=== PATIENT | female | born 1960 | race Two or more races ===

== ENCOUNTER 2019-08-01 10:54 | Emergency (ER) | payer OTHER ==
[~2019-08-01] VITALS: Ht 147.3 cm; Wt 72.6 kg
--- NOTE | 2019-08-01 11:40 | Emergency Room Report ---
History of Present Illness General Chief Complaint: Edema Source: Patient Present Illness HPI Patient is a 58-year-old female past medical history of diabetes, hypertension and hyperlipidemia who presents to the ER complaining of lower extremity swelling. Patient complains of swelling for the past 3 months. She states it is worse during the day and relieved when she sleeps at night. She denies any chest pain or shortness of breath. She denies any fever or chills. She denies any trauma. She states that she was seen by her primary care physician had an ultrasound done and was told that everything was fine. Patient denies any abdominal pain, nausea or vomiting. Patient does not complain of any worsening of symptoms but wanted to see if there was a reason for her swelling. She states that she was given no medications for this by her primary care physician. Allergies: Coded Allergies: No Known Allergies (Unverified , 08/01/19) Patient History Reviewed Nursing Documentation: PMH: Agreed; PSxH: Agreed Nursing Documentation-PMH Past Medical History: No History, Except For Hx Diabetes: Yes Review of Systems All Other Systems: negative except mentioned in HPI Physical Exam Vital Signs Date Time Temp Pulse Resp B/P (MAP) Pulse Ox O2 Delivery O2 Flow Rate FiO2 08/01/19 10:59 98.4 96 16 159/83 (108) 95 Room Air Sp02 EP Interpretation: reviewed General Appearance: well appearing, no apparent distress, alert, GCS 15, non- toxic Head: normocephalic, atraumatic Eyes: bilateral eye normal inspection, bilateral eye PERRL ENT: hearing grossly normal, normal pharynx, no angioedema, normal voice Neck: full range of motion, supple/symm/no masses Respiratory: chest non-tender, no respiratory distress, speaking full sentences , other - faint bibasilar crackles Cardiovascular #1: regular rate, rhythm, edema - bl LE edema, Left greater than right, no erythema or crepitus Gastrointestinal: normal bowel sounds, non tender, soft, non-distended, no guarding, no rebound Genitourinary: normal inspection, no CVA tenderness Musculoskeletal: back normal, normal range of motion, calf tenderness, gait/ station normal, non-tender Neurologic: alert, motor strength/tone normal, oriented x3, sensory intact, responsive, speech normal Skin: no rash, normal color Lymphatic: normal inspection, no adenopathy Medical Decision Making Diagnostic Impression: Primary Impression: CHF (congestive heart failure) Additional Impressions: Leukocytosis Anemia ER Course Patient has mild leukocytosis of unknown significance. Patient has no fever or chills. Patient has no infiltrate on her chest x-ray. She denies any urinary symptoms but I have ordered for urinalysis which is pending at the time of admission. Laboratory Tests Test 08/01/19 11:50 White Blood Count 14.5 K/UL (4.8-10.8) H Red Blood Count 3.43 M/UL (4.20-5.40) L Hemoglobin 10.6 G/DL (12.0-16.0) L Hematocrit 30.7 % (37.0-47.0) L Mean Corpuscular Volume 89 FL (80-99) Mean Corpuscular Hemoglobin 30.8 PG (27.0-31.0) Mean Corpuscular Hemoglobin Concent 34.4 G/DL (32.0-36.0) Red Cell Distribution Width 11.3 % (11.6-14.8) L Platelet Count 240 K/UL (150-450) Mean Platelet Volume 6.0 FL (6.5-10.1) L Neutrophils (%) (Auto) 78.8 % (45.0-75.0) H Lymphocytes (%) (Auto) 11.5 % (20.0-45.0) L Monocytes (%) (Auto) 6.1 % (1.0-10.0) Eosinophils (%) (Auto) 2.6 % (0.0-3.0) Basophils (%) (Auto) 1.0 % (0.0-2.0) Sodium Level 135 MMOL/L (136-145) L Potassium Level 5.0 MMOL/L (3.5-5.1) Chloride Level 106 MMOL/L (98-107) Carbon Dioxide Level 26 MMOL/L (21-32) Anion Gap 3 mmol/L (5-15) L Blood Urea Nitrogen 27 mg/dL (7-18) H Creatinine 1.0 MG/DL (0.55-1.30) Estimate Glomerular Filtration Rate 56.8 mL/min (>60) Glucose Level 287 MG/DL (74-106) H Calcium Level 8.3 MG/DL (8.5-10.1) L Total Bilirubin 0.3 MG/DL (0.2-1.0) Aspartate Amino Transferase (AST) 19 U/L (15-37) Alanine Aminotransferase (ALT) 26 U/L (12-78) Alkaline Phosphatase 160 U/L (46-116) H Troponin I 0.011 ng/mL (0.000-0.056) Pro-B-Type Natriuretic Peptide 873 pg/mL (0-125) H Total Protein 5.7 G/DL (6.4-8.2) L Albumin 1.6 G/DL (3.4-5.0) L Globulin 4.1 g/dL Albumin/Globulin Ratio 0.4 (1.0-2.7) L EKG Diagnostic Results EKG Time: 12:07 Rate: normal Rhythm: NSR ST Segments: no acute changes Rhythm Strip Diag. Results Rhythm Strip Time: 12:27 EP Interpretation: other - Ktaie Fry MD Rate: 98 Rhythm: NSR, no PVC's, no ectopy Reevaluation Time: 13:27 - Patient resting comfortably in bed speaking on her phone. She is not hypoxic, tachycardic or hypotensive. She denies any chest pain or shortness of breath. BNP is almost 1000. Pending chest x-ray. Ultrasound demonstrates no evidence for DVT. I have ordered for 20 mg of IV Lasix as well as 162 mg of oral aspirin. Last Vital Signs Date Time Temp Pulse Resp B/P (MAP) Pulse Ox O2 Delivery O2 Flow Rate FiO2 08/01/19 10:59 98.4 96 16 159/83 (108) 95 Room Air Disposition: ADMITTED INPATIENT Condition: Improved Signed Out To: Dr. Carol Macias pending insurance approval and final disposition Katie Fry M.D. Aug 01, 2019 11:40
[2019-08-01 11:50] VITALS: BP 152/80
--- NOTE | 2019-08-01 12:10 | NUR ---
ED Nurse Note: Pt walked into ED w/ c/o swelling in bilateral legs. Pt legs have non-pitting edema. Bilateral pedal pusles 3+. Pt has pain 7/10 in bilater legs, ROM 4/5. Pt is alert and orientedx4, ambulatory with assist. is at bedside.
[2019-08-01 12:53] LABS: ANION GAP 3 mmol/L (5-15); BLOOD UREA NITROGEN 27 mg/dL (7-18); CALCIUM 8.3 MG/DL (8.5-10.1); CARBON DIOXIDE 26 MMOL/L (21-32); CHLORIDE 106 MMOL/L (98-107); SODIUM 135 MMOL/L (136-145)
[2019-08-01 12:57] LABS: EOSINOPHILS % (AUTO) 2.6 % (0.0-3.0); HEMATOCRIT 30.7 % (37.0-47.0); HEMOGLOBIN 10.6 G/DL (12.0-16.0); LYMPHOCYTES % (AUTO) 11.5 % (20.0-45.0); MEAN CORPUSCULAR VOLUME 89 FL (80-99); MONOCYTES % (AUTO) 6.1 % (1.0-10.0); NEUTROPHILS % (AUTO) 78.8 % (45.0-75.0); PLATELET COUNT 240 K/UL (150-450); RED BLOOD COUNT 3.43 M/UL (4.20-5.40); RED CELL DISTRIBUTION WIDTH 11.3 % (11.6-14.8); WHITE BLOOD COUNT 14.5 K/UL (4.8-10.8)
[2019-08-01 13:04] LABS: ALANINE AMINOTRANSFERASE 26 U/L (12-78); ALBUMIN 1.6 G/DL (3.4-5.0); ALBUMIN/GLOBULIN RATIO 0.4 (1.0-2.7); ALKALINE PHOSPHATASE 160 U/L (46-116); ASPARTATE AMINO TRANSFERASE 19 U/L (15-37); BILIRUBIN,TOTAL 0.3 MG/DL (0.2-1.0)
[2019-08-01] MEDS ORDERED: Aspirin Baby 81mg ORAL ONE (13:15)
--- NOTE | 2019-08-01 16:28 | Diagnostic Imaging Report ---
Indication: Dyspnea Comparison: None A single view chest radiograph was obtained. Findings: Cardiomediastinal appearance is within normal limits for age. The lungs are clear. Pulmonary vascularity is appropriate. The diaphragmatic contour is smooth and costophrenic angles are sharp. No pleural effusions are identified. The bones are unremarkable. Impression: No acute findings
[2019-08-01] MEDS ORDERED: FUROSEMIDE20 M1 ORAL (16:55)
[2019-08-01 17:28] LABS: APPEARANCE,URINE CLEAR; BILIRUBIN, URINE NEGATIVE (NEGATIVE); COLOR,URINE PALE YELLOW; GLUCOSE, URINE (UA) 3+ (NEGATIVE); KETONES,URINE 1+ (NEGATIVE); LEUKOCYTE ESTERASE ,URINE 1+ (NEGATIVE); NITRITE,URINE NEGATIVE (NEGATIVE); PH,URINE 7 (4.5-8.0); PROTEIN,URINE 4+ (NEGATIVE); UROBILINOGEN,URINE NORMAL MG/DL (0.0-1.0)
[2019-08-01 18:00] VITALS: BP 150/76
--- NOTE | 2019-08-01 18:00 | NUR ---
ER DISCHARGE NOTE: Patient is cleared to be discharged per ERMD, pt is aox4, on room air, with stable vital signs. pt was given dc and prescription instructions, pt was able to verbalize understanding, pt id band and iv site removed without complications. pt is able to ambulate with steady gait. pt took all belongings.
== END 2019-08-01 18:00 | disposition home or self-care (01) ==
LOC: EMR 12:00 → CANBEDREQ 17:48 → EMR 18:00
DX: I50.9 Heart failure, unspecified (principal); D72.829 Elevated white blood cell count, unspecified; D64.9 Anemia, unspecified; E11.9 Type 2 diabetes mellitus without complications; I10 Essential (primary) hypertension; E78.5 Hyperlipidemia, unspecified
CPT/HCPCS: 36415; 71045; 80053; 81003; 83880; 84484; 85025; 87086; 93970; 96374; J1940; Z7502; 99284